=== PATIENT | female | born 1965 | race Caucasian/White ===

== ENCOUNTER 2023-04-30 23:30 | Emergency (ER) | payer OTHER ==
[~2023-04-30 23:30] MED LIST: EPINEPHrine 1:10,000 1 MG/10 ML Syringe ONE
[2023-04-30] MEDS ORDERED: Naloxone 0.4 MG/ML SDV IV ONE (23:37)
[2023-04-30] MEDS ORDERED: Succinylcholine 200 MG/10 ML MDV ONE (23:53)
[2023-04-30] MEDS ORDERED: LORazepam 2 MG/ML SDV ONE (23:56)
[2023-05-01] LABS: BASOPHILS ABSOLUTE AUTO 0.02 K/uL (0.00-0.20); BASOPHILS PERCENT AUTO 0.2 % (0.0-2.0); EOSINOPHILS ABSOLUTE AUTO 0.18 K/uL (0.00-0.50); EOSINOPHILS PERCENT AUTO 1.7 % (0.0-5.0); HEMATOCRIT 41.7 % (34.0-46.0); HEMOGLOBIN 13.5 g/dL (11.7-15.5); LYMPHOCYTES ABSOLUTE AUTO 4.19 K/uL (0.50-3.50); LYMPHOCYTES PERCENT AUTO 40.4 % (10.0-50.0); MEAN CORPUSCULAR HEMOGLOBIN 27.7 pg (28.2-33.3); MEAN CORPUSCULAR HGB CONC 32.4 g/dL (31.7-36.0); MEAN CORPUSCULAR VOLUME 85.6 fL (84.0-98.0); MONOCYTES ABSOLUTE AUTO 0.48 K/uL (0.00-1.00); MONOCYTES PERCENT AUTO 4.6 % (2.0-14.0); NEUTROPHILS PERCENT AUTO 53.1 % (45.0-80.0); PLATELET COUNT,PLT 168 K/uL (150-350); RED BLOOD CELL COUNT 4.87 M/uL (3.77-5.09); RED CELL DISTRIBUTION WIDTH 14.9 % (11.2-14.1); WHITE BLOOD CELL COUNT,WBC 10.4 K/uL (4.0-10.2)
[2023-05-01] MEDS ORDERED: fentaNYL 100 MCG/2 ML SDV IVPUSH ONE (00:05)
[2023-05-01] MEDS ORDERED: Succinylcholine 200 MG/10 ML MDV IVPUSH ONE (00:06)
[2023-05-01] MEDS ORDERED: Etomidate 2 MG/ML 10 ML SDV IVPUSH ONE (00:06)
[2023-05-01 00:07] LABS: ALANINE AMINOTRANSFERASE,ALT 91 U/L (12-78); ALBUMIN 3.3 g/dL (3.4-5.0); ALKALINE PHOSPHATASE 108 IU/L (46-116); ANION GAP 22.7 meq/L (7-15); ASPARTATE AMNIOTRANSFERASE,AST 115 U/L (15-37); BILIRUBIN TOTAL 0.3 mg/dL (0.2-1.0); BLOOD UREA NITROGEN,BUN 13 mg/dL (7-18); CALCIUM 8.5 mg/dL (8.5-10.1); CARBON DIOXIDE,CO2 19.2 mmol/L (21.0-32.0); CHLORIDE,CL 102 mmol/L (98-107); CREATININE 1.23 mg/dL (0.51-1.17); ESTIMATED GFR 51 mL/min (>=60); GLUCOSE RANDOM 238 mg/dL (70-99); POTASSIUM,K 3.9 mmol/L (3.5-5.1); PROTEIN TOTAL,TP 6.8 g/dL (6.4-8.2); SODIUM,NA 140 mmol/L (136-145)
[2023-05-01] MEDS ORDERED: LORazepam 2 MG/ML SDV IVPUSH ONE (00:09)
[2023-05-01 00:23] LABS: PROTHROMBIN TIME 8.9 SEC (9.0-11.1)
== END 2023-05-01 00:45 ==
LOC: LL.ED 23:30
DX: R57.0 Cardiogenic shock (principal); I21.3 ST elevation (STEMI) myocardial infarction of unspecified site
CPT/HCPCS: 31500; 36415; 43752; 71045; 80053; 84484; 85025; 85610; 93005; 93010; 99285; J0171; J0330; J2060; J2310; J3010; J3490